=== PATIENT | male | born 2000 | race African-American/Black ===

== ENCOUNTER 2018-02-02 10:15 | Emergency (ER) | payer SELFPAY ==
--- OUTSIDE RECORDS SUMMARY | 2018-02-02 10:18 | XMS REPORT ---
:2000 [facility] Address [address] [place] [address] Care Team Providers Name Role Phone Unavailable Unavailable Unavailable Payers Payer Name Policy Type Policy Number Effective Date Expiration Date Problems This patient has no known problems. Allergies, Adverse Reactions, Alerts Allergy Allergy Status Severity Reaction(s) Onset Inactive Treating Comments Name Type Date Date Clinician No Known DA Active U 2018-01 Allergies - 00:00:0 0 No Known DA Active U 2015-07 Allergies - 00:00:0 0 Medications This patient has no known medications.
--- OUTSIDE RECORDS SUMMARY | 2018-02-02 10:18 | XMS REPORT | Clinical Summary ---
:2000 Author Organization [facility] Address [address] [place] [address] Care Team Providers Name Role Phone Asked, No Pcp Primary Care Provider Unavailable Allergies No Known Allergies Current Medications No known medications Active Problems Not on file Social History Tobacco Use Types Packs/Day Years Used Date Never Smoker Alcohol Use Drinks/Week oz/Week Comments No Sex Assigned at Date Recorded Not on file Last Filed Vital Signs Not on file Plan of Treatment Not on file Results Not on fileafter 02/01/2017
[2018-02-02] MEDS ORDERED: TRAMADOL HCL 50 MG TAB ONE (10:56)
[2018-02-02] MEDS ORDERED: IBUPROFEN 400 MG TAB ONE (10:56)
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
--- NOTE | 2018-02-02 12:49 | RAD REPORT ---
EXAM DESCRIPTION: MCKAYLA Lopez - 02/02/2018 11:54 am CLINICAL HISTORY: Right hand pain status post injury FINDINGS: No fracture or dislocation is seen. If the patient continues to have symptoms to suggest a ligamentous/tendon injury then MRI would recom mended
== END 2018-02-02 12:43 | disposition home or self-care (01) ==
LOC: ER 10:15
DX: S66.201A Unspecified injury of extensor muscle, fascia and tendon of right thumb at wrist and hand level, initial encounter (principal); X58.XXXA Exposure to other specified factors, initial encounter; Y93.9 Activity, unspecified; Y92.9 Unspecified place or not applicable
CPT/HCPCS: 99283